=== PATIENT | female | born 1930 | race Two or more races ===

== ENCOUNTER → 2016-10-29 | Outpatient (CLI) | payer MEDICARE, OTHER ==
--- NOTE | 2016-10-29 11:58 | KCIC ---
PROCEDURE MR of the right foot without contrast HISTORY Right distal 1st toe infection for 6 weeks. Diabetes. Osteomyelitis. TECHNIQUE Routine multiplanar sequences are obtained. COMPARISON None FINDINGS Abnormal marrow edema signal within the distal phalanx of the 1st toe, with relative sparing of the proximal base. The shaft and terminal tuft of the 1st phalanx are poorly visualized on the T1 weighted images, loss of the normal fatty signal and loss of some of cortical definition. In this clinical context, the findings are compatible osteomyelitis. Only mild soft tissue edema at the 1st toe. No evidence of organized fluid collection or abscess. No evidence of acute fracture. No significant joint effusion. The visible tendons appear intact. No significant tendon sheath fluid. No significant acute sesamoiditis. Lisfranc ligament complex is intact as is tarsometatarsal alignment. Mild soft tissue edema around the foot. Mild degenerative changes. IMPRESSION 1. Abnormal signal with loss of definition of the distal phalanx of the 1st toe. In the context of soft tissue infection, this is compatible with osteomyelitis. 2. No evidence of soft tissue abscess. Electronically signed by: Ever Cordova MD (October 29, 2016 11:56:40)
== END | disposition home or self-care (01) ==
LOC: KCIC MRI 09:02
PROVIDERS: ATTEND Podiatrist Foot & Ankle Surgery
DX: M86.8X7 Other osteomyelitis, ankle and foot (principal)
CPT/HCPCS: 73718